=== PATIENT | female | born 1985 | race Caucasian/White ===

== ENCOUNTER 2022-02-12 14:04 | Observation (INO) ==
[2022-02-12] MEDS ORDERED: SODIUM CHLORIDE 0.9% 1,000 ML IV STA (14:47)
[2022-02-12] MEDS ORDERED: ONDANSETRON 4 MG/2 ML VIAL IV STA (14:47)
[2022-02-12] MEDS ORDERED: KETOROLAC 30 MG/1 ML VIAL IV STA (14:47)
[2022-02-12] MEDS ORDERED: HYDROmorphone 1 MG/1 ML SYRINGE IV STA (14:47)
[2022-02-12 15:37] LABS: Basophils % 0.4 % (0.0-0.8); Eosinophils # 0.1 10*3/uL (0.0-0.87); Eosinophils % 1.3 % (0.00-10.9); Hematocrit 43.8 VOL% (35.7-47.0); Hemoglobin 14.5 GM/DL (12.0-16.0); Immature Granulocytes % 0.6 %; Immature Granulocytes Absolute 0.06 #; Lymphocytes # 1.4 10*3/uL (1.4-4.0); Lymphocytes % 14.6 % (21.3-54.2); Mean Corpuscular HGB Conc 33.1 GM/DL (32-36); Mean Corpuscular Volume 92.4 FL (87-102); Mean Platelet Volume 10.5 FL (9.6-12.0); Monocytes # 0.4 10*3/uL (0.11-0.8); Monocytes % 4.5 % (1.7-12.7); Neutrophils % 78.6 % (38.7-73.9); Platelet Count 177 T/CUMM (130-400); Red Blood Count 4.74 MC/CUMM (3.8-5.5); Red Cell Distribution Width 13.2 % (9.3-17.3); White Blood Count 9.6 T/CUMM (4-12)
[2022-02-12 15:57] LABS: Alanine Aminotransferase 21 U/L (13-56); Albumin 3.8 G/DL (3.4-5.0); Alkaline Phosphatase 66 U/L (45-117); Aspartate Amino Transferase 23 U/L (0-37); Bilirubin,Total < 0.39 MG/DL (0.20-1.00); Blood Urea Nitrogen 19 MG/DL (7-18); Calcium 9.4 MG/DL (8.5-10.1); Carbon Dioxide 24 MMOL/L (21-32); Chloride 109 MMOL/L (98-107); Glucose 87 MG/DL (74-106); Osmolality,Calculated 281.3 MOS/KG (273-304); Potassium 4.3 MMOL/L (3.5-5.1); Sodium 141 MMOL/L (136-145); Total Protein 7.4 G/DL (6.4-8.2)
[2022-02-12 17:17] LABS: Platelet Estimate Normal
[2022-02-12] MEDS ORDERED: ONDANSETRON 4 MG/2 ML VIAL IV PRN (20:11)
[2022-02-12] MEDS ORDERED: HYDROmorphone 1 MG/1 ML SYRINGE IV PRN (20:11)
[2022-02-12] MEDS ORDERED: ACETAMINOPHEN 325 MG TABLET PO PRN (20:11)
[2022-02-12] MEDS: LACTATED RINGERS 1,000 ML IV SCH (21:00)
[2022-02-12 21:24] LABS: Bacteria,Urine Occasional /HPF (Few); Bilirubin,Urine Negative (Negative); Blood, Urine Negative (Negative); Glucose,Urine (UA) Negative (Negative); Ketones,Urine 20 mg/dL (Negative); Mucus,Urine Occasional /LPF (Occasional); Nitrite,Urine Negative (Negative); Protein,Urine Negative (Negative); RBC,Urine 17 /HPF (0-4); Squamous Epithelial Cell,Urine Occasional /HPF (0-10); Urine Appearance Slightly Hazy (Clear); Urine Color Yellow (Yellow); Urine Specific Gravity 1.047 (1.001-1.035); Urine Urobilinogen < 2.0 eU/dL (<2.0)
[2022-02-13] MEDS: LACTATED RINGERS 1,000 ML IV SCH (05:08)
[2022-02-13 05:48] LABS: Basophils % 0.8 % (0.0-0.8); Eosinophils # 0.2 10*3/uL (0.0-0.87); Hematocrit 39.7 VOL% (35.7-47.0); Immature Granulocytes % 0.8 %; Immature Granulocytes Absolute 0.04 #; Lymphocytes # 1.5 10*3/uL (1.4-4.0); Lymphocytes % 30.1 % (21.3-54.2); Mean Corpuscular HGB Conc 32.7 GM/DL (32-36); Mean Corpuscular Volume 93.4 FL (87-102); Monocytes # 0.5 10*3/uL (0.11-0.8); Monocytes % 9.2 % (1.7-12.7); Neutrophils % 56.1 % (38.7-73.9); Platelet Count 227 T/CUMM (130-400); Red Blood Count 4.25 MC/CUMM (3.8-5.5); Red Cell Distribution Width 13.2 % (9.3-17.3)
[2022-02-13 06:09] LABS: Alanine Aminotransferase 21 U/L (13-56); Albumin 3.1 G/DL (3.4-5.0); Alkaline Phosphatase 55 U/L (45-117); Aspartate Amino Transferase 15 U/L (0-37); Bilirubin,Total < 0.39 MG/DL (0.20-1.00); Blood Urea Nitrogen 17 MG/DL (7-18); Calcium 8.8 MG/DL (8.5-10.1); Carbon Dioxide 27 MMOL/L (21-32); Chloride 109 MMOL/L (98-107); Glucose 100 MG/DL (74-106); Osmolality,Calculated 284.1 MOS/KG (273-304); Potassium 3.8 MMOL/L (3.5-5.1); Sodium 142 MMOL/L (136-145); Total Protein 6.4 G/DL (6.4-8.2)
[2022-02-13] MEDS ORDERED: PANTOPRAZOLE 40 MG TABLET PO SCH (09:00)
[2022-02-13] MEDS ORDERED: INDOCYANINE GREEN 25 MG VIAL IV ONE (09:20)
[2022-02-13] MEDS ORDERED: FAMOTIDINE 20 MG/2 ML VIAL IV ONE (09:29)
[2022-02-13] MEDS ORDERED: fentaNYL 100 MCG/2 ML VIAL ONE (09:35)
[2022-02-13] MEDS ORDERED: MIDAZOLAM 2 MG/2 ML VIAL ONE (09:35)
[2022-02-13] MEDS ORDERED: ONDANSETRON 4 MG/2 ML VIAL ONE (09:35)
[2022-02-13] MEDS ORDERED: SEVOFLURANE 1 UNIT/15 MINUTE INH ONE (09:35)
[2022-02-13] MEDS ORDERED: propofoL 200 MG/20 ML VIAL IV ONE (09:35)
[2022-02-13] MEDS ORDERED: DEXAMETHASONE 4 MG/1 ML VIAL ONE (09:35)
[2022-02-13] MEDS ORDERED: LIDOCAINE 2% 5 ML VIAL ONE (09:35)
[2022-02-13] MEDS ORDERED: KETOROLAC 30 MG/1 ML VIAL ONE (09:36)
[2022-02-13] MEDS ORDERED: ACETAMINOPHEN INJ 1,000 MG/100 ML VIAL IV ONE (09:36)
[2022-02-13] MEDS ORDERED: TISSUE ADHESIVE 1 EACH APPLICATOR TOP ONE (09:37)
[2022-02-13] MEDS ORDERED: LIDOCAINE MPF 1% /EPI 30 ML VIAL ONE (09:37)
[2022-02-13] MEDS ORDERED: BUPIVACAINE MPF 0.25% 10 ML VIAL ONE (09:37)
[2022-02-13] MEDS ORDERED: LACTATED RINGERS 1,000 ML IV SCH (10:00)
[2022-02-13] MEDS ORDERED: ePHEDrine 50 MG/ML VIAL ONE (10:15)
[2022-02-13] MEDS ORDERED: NEOSTIGMINE 10 MG/10 ML VIAL ONE (10:36)
[2022-02-13] MEDS ORDERED: GLYCOPYRROLATE 0.4 MG/2 ML VIAL ONE (10:36)
[2022-02-13] MEDS ORDERED: PHENYLEPHRINE 1 MG/10 ML SYRINGE IV ONE (11:07)
[2022-02-13 11:35] VITALS: BP 111/65
== END 2022-02-13 15:00 | disposition home or self-care (01) ==
LOC: N.EDINP 14:04 → N.ED 14:04 → N.EDINP 20:55 → N.2W 21:04
PROVIDERS: ADMIT Surgery; ATTEND Surgery